=== PATIENT | female | born 1960 | race Caucasian/White ===

== ENCOUNTER 2019-06-20 02:05 | Emergency (ER) | payer MEDICARE, OTHER ==
[~2019-06-20] VITALS: Ht 165.1 cm; Wt 77.1 kg
[2019-06-20] MEDS ORDERED: ONDANSETRON HCL/PF 4 MG/2 ML VIAL ONE (02:16)
[2019-06-20] MEDS ORDERED: MORPHINE SULFATE INJ 4 MG/ML DISP.SYRIN ONE ×2 (02:16→03:29)
--- NOTE | 2019-06-20 02:21 | NUR ---
[id number] FROM HOME FOR LT WRIST POSSIBLE FX S/P FALL BED TO ER BED 1 LINE STARTED, VSS TECH AT BEDSIDE FOR XRAY
[2019-06-20] MEDS ORDERED: ONDANSETRON HCL/PF 4 MG/2 ML VIAL IV ONE (02:30)
[2019-06-20] MEDS ORDERED: MORPHINE SULFATE INJ 2 MG/ML DISP.SYRIN IV ONE ×2 (02:30→03:30)
[2019-06-20] MEDS ORDERED: PROPOFOL 20 ML IV ONE (02:50)
[2019-06-20] MEDS ORDERED: PROPOFOL 200 MG/20 ML VIAL IV ONE (03:30)
--- NOTE | 2019-06-20 04:20 | NUR ---
CLOSED REDUCTION PERFOREMED AT BESIDE BY , AWAITING POST XRAY
--- NOTE | 2019-06-20 05:14 | NUR ---
IV removed. Catheter intact and site benign. Pressure and 4x4 applied to site. No bleeding noted.Patient discharged to home in stable condition. Written and verbal after care instructions given. Patient verbalizes understanding of instruction.
[2019-06-20 05:15] VITALS: BP 130/48
== END 2019-06-20 05:16 | disposition home or self-care (01) ==
LOC: ER 02:05
DX: S52.532A Colles' fracture of left radius, initial encounter for closed fracture (principal); S62.012A Displaced fracture of distal pole of navicular [scaphoid] bone of left wrist, initial encounter for closed fracture; Q71.892 Other reduction defects of left upper limb; Z88.0 Allergy status to penicillin; Z88.2 Allergy status to sulfonamides; W18.39XA Other fall on same level, initial encounter; Y93.89 Activity, other specified; Y92.89 Other specified places as the place of occurrence of the external cause; Y99.8 Other external cause status
CPT/HCPCS: 25605; 73110 ×2; 96374; 96375; 96376; 99152; 99285; J2270 ×2; J2405; J2704; J7030; G0500

== ENCOUNTER 2019-06-20 09:28 | Emergency (ER) | payer MEDICARE, OTHER ==
[~2019-06-20] VITALS: Ht 165.1 cm; Wt 77.1 kg
--- NOTE | 2019-06-20 09:45 | NUR ---
PT BIB SELF C/O WORSENING LEFT WRIST PAIN,SEEN LAST NIGHT FOR WRIST FRACTURE, PT IS AAOX4, NOT IN RESPIRATORY DISTRESS, HOOKED TO MONITOR, KEPT RESTED AND COMFORTABLE, WILL CONTINUE TO MONITOR.
--- NOTE | 2019-06-20 09:58 | NUR ---
PT SEEN AND EXAMINED BY .
[2019-06-20] MEDS ORDERED: KETOROLAC TROMETHAMINE INJ 30 MG/ML VIAL IV ONE (10:00)
[2019-06-20] MEDS ORDERED: MORPHINE SULFATE INJ 4 MG/ML DISP.SYRIN ONE ×2 (10:00→10:44)
[2019-06-20] MEDS ORDERED: MORPHINE SULFATE INJ 2 MG/ML DISP.SYRIN ONE ×2 (10:00→10:44)
[2019-06-20] MEDS ORDERED: MORPHINE SULFATE INJ 2 MG/ML DISP.SYRIN IV ONE ×2 (10:00→11:00)
--- NOTE | 2019-06-20 10:00 | NUR ---
IV LINE ESTABLISHED R SHERIF [id number].
[2019-06-20] MEDS ORDERED: KETOROLAC TROMETHAMINE 15 MG/ML VIAL ONE (10:02)
[2019-06-20] MEDS ORDERED: ONDANSETRON HCL/PF 4 MG/2 ML VIAL ONE ×2 (10:06→11:15)
[2019-06-20] MEDS ORDERED: PROPOFOL 20 ML IV ONE (10:18)
[2019-06-20] MEDS ORDERED: ONDANSETRON HCL/PF 4 MG/2 ML VIAL IV ONE ×2 (10:30→11:30)
[2019-06-20] MEDS ORDERED: PROPOFOL 200 MG/20 ML VIAL IV ONE (10:30)
[2019-06-20] MEDS ORDERED: IV NS 0.9% 1,000 ML IV ONE (10:30)
--- NOTE | 2019-06-20 10:30 | NUR ---
RT, RN AND MD AT BEDSIDE FOR MODERATE SEDATION SET UP.
--- NOTE | 2019-06-20 10:33 | NUR ---
PROPOFOL GIVEN IVP.
--- NOTE | 2019-06-20 10:34 | NUR ---
CLOSE REDUCTION DONE BY .
--- NOTE | 2019-06-20 10:46 | NUR ---
SCOOP OPERATOR AT BEDSIDE FOR XRAY.
--- NOTE | 2019-06-20 10:56 | NUR ---
CALLED [facility] FOR CONSULT. JACIEL PORTILLO WILL CALL BACK.
[2019-06-20] MEDS ORDERED: HYDROCODONE/APAP 10/325MG 1 EA TABLET ONE (11:34)
[2019-06-20] MEDS: HYDROCODONE/APAP 10/325MG 1 EA TABLET PO ONE ×2 (11:34→11:59)
[2019-06-20] MEDS ORDERED: METOCLOPRAMIDE HCL 10 MG/2 ML VIAL ONE (12:10)
[2019-06-20] MEDS ORDERED: oxyCODONE/APAP (5/325 MG) 1 UDTAB TABLET ONE (12:17)
[2019-06-20] MEDS ORDERED: METOCLOPRAMIDE HCL 10 MG/2 ML VIAL IV ONE (12:30)
[2019-06-20] MEDS ORDERED: oxyCODONE/APAP (5/325 MG) 1 UDTAB TABLET PO ONE (12:30)
--- NOTE | 2019-06-20 13:08 | NUR ---
IV removed. Catheter intact and site benign. Pressure and 4x4 applied to site. No bleeding noted. Patient discharged to home in stable condition. Written and verbal after care instructions given. Patient verbalizes understanding of instruction.
[2019-06-20 13:09] VITALS: BP 119/66
== END 2019-06-20 13:09 | disposition home or self-care (01) ==
LOC: ER 09:29
DX: S52.532A Colles' fracture of left radius, initial encounter for closed fracture (principal); S63.095A Other dislocation of left wrist and hand, initial encounter; Z88.0 Allergy status to penicillin; Z88.2 Allergy status to sulfonamides; Z60.2 Problems related to living alone; W18.39XA Other fall on same level, initial encounter; Y93.89 Activity, other specified; Y92.89 Other specified places as the place of occurrence of the external cause; Y99.8 Other external cause status
CPT/HCPCS: 25605; 73100; 96374; 96375; 96376; 99285; J1885; J2270 ×4; J2405 ×2; J2704; J2765; J7030 ×2

== ENCOUNTER 2019-07-01 11:29 | Emergency (ER) | payer MEDICARE, OTHER ==
[~2019-07-01] VITALS: Ht 165.1 cm; Wt 79.4 kg
[2019-07-01 11:36] VITALS: BP 126/93
--- NOTE | 2019-07-01 11:40 | NUR ---
SEEN AND EXAMINED BY .
[2019-07-01] MEDS ORDERED: oxyCODONE/APAP (5/325 MG) 1 UDTAB TABLET ONE (11:56)
[2019-07-01] MEDS ORDERED: ONDANSETRON 4 MG TAB.RAPDIS ONE (11:58)
[2019-07-01] MEDS ORDERED: ONDANSETRON 4 MG TAB.RAPDIS SL ONE (12:00)
[2019-07-01] MEDS ORDERED: oxyCODONE/APAP (5/325 MG) 1 UDTAB TABLET PO ONE (12:00)
--- NOTE | 2019-07-01 12:02 | NUR ---
TORIE BLACKBURN AT BEDSIDE FOR SPLINTING.
--- NOTE | 2019-07-01 12:12 | NUR ---
Patient discharged to home in stable condition. Written and verbal after care instructions given. Patient verbalizes understanding of instruction.
== END 2019-07-01 12:41 | disposition home or self-care (01) ==
LOC: ER 11:31
DX: S52.532D Colles' fracture of left radius, subsequent encounter for closed fracture with routine healing (principal); Z88.0 Allergy status to penicillin; Z88.2 Allergy status to sulfonamides; Z60.2 Problems related to living alone; X58.XXXD Exposure to other specified factors, subsequent encounter
CPT/HCPCS: 29125; 99283; Q0162

== ENCOUNTER 2019-07-17 11:36 | Emergency (ER) | payer MEDICARE, MEDICAID ==
[~2019-07-17] VITALS: Ht 165.1 cm; Wt 77.1 kg
[2019-07-17 11:40] VITALS: BP 130/81
--- NOTE | 2019-07-17 11:40 | NUR ---
PATIENT REQUESTS TO HAVE L WRIST SPLINTED
--- NOTE | 2019-07-17 12:08 | NUR ---
TECH AT BEDSIDE FOR L WRIST SPLINT W RENEE WRAP.
== END 2019-07-17 12:27 | disposition home or self-care (01) ==
LOC: ER 11:42
DX: M25.531 Pain in right wrist (principal); G47.419 Narcolepsy without cataplexy; Z88.0 Allergy status to penicillin; Z88.2 Allergy status to sulfonamides; Z60.2 Problems related to living alone
CPT/HCPCS: 29125; 99283; L3763

== ENCOUNTER 2019-07-29 09:15 | Emergency (ER) | payer MEDICARE, OTHER ==
[~2019-07-29] VITALS: Ht 165.1 cm; Wt 77.1 kg
--- NOTE | 2019-07-29 09:20 | NUR ---
SEEN AND EXAMINED BY .
[2019-07-29 09:26] VITALS: BP 154/96
--- NOTE | 2019-07-29 11:15 | NUR ---
SPLINTING DONE BY CONSULTING INTERN.
== END 2019-07-29 11:37 | disposition home or self-care (01) ==
LOC: ER 09:15
DX: S52.532D Colles' fracture of left radius, subsequent encounter for closed fracture with routine healing (principal); G89.18 Other acute postprocedural pain; Z88.0 Allergy status to penicillin; Z88.2 Allergy status to sulfonamides; Z60.2 Problems related to living alone; X58.XXXD Exposure to other specified factors, subsequent encounter
CPT/HCPCS: 29125; 99283; A6403